=== PATIENT | female | born 1985 | race Caucasian/White ===

== ENCOUNTER 2017-02-12 12:13 | Emergency (ER) | payer OTHER ==
[~2017-02-12] VITALS: Ht 167.6 cm; Wt 86.2 kg
[~2017-02-12 12:13] MED LIST: BACTRIM DS 8001 TA1 PO; BENADRYL50 MG PO; CHANTIX1 M1 PO; CYCLOBENZAPRINE10 MG PO; FLONASE0.05 MG/AC NS; IRON325 M1 PO; LIDEX0.05% T; LOMOTIL 0.025 M1 TA1 PO; MEDROL DOSEPAK4 MG PO; MOTRIN800 MG; MOTRIN800 MG PO; Orphenadrine C100 MG PO; PERCOCET 325 MG1 TA5; PERCOCET 325 MG1 TA6 PO; PREDNICOT20 MG PO; PREDNISONE10 MG PO; PREDNISONE20 M1 PO; PRENATAL1 TA2 PO; STOOL SOFTENER1 TAB; ULTRAM50 MG PO; VISTARIL25 M2 PO; ZITHROMAX Z PA250 MG PO; ZOFRAN ODT4 MG SL; ZYRTEC10 MG PO
[2017-02-12] MEDS ORDERED: NAPROSYN500 MG PO (12:26)
[2017-02-12] MEDS ORDERED: 'PARAFON FORTE500 M1 PO (12:26)
== END 2017-02-12 13:32 | disposition home or self-care (01) ==
LOC: ED 12:13
DX: M54.5 Low back pain (principal); R03.0 Elevated blood-pressure reading, without diagnosis of hypertension; F17.200 Nicotine dependence, unspecified, uncomplicated; Z88.0 Allergy status to penicillin; Z79.899 Other long term (current) drug therapy

== ENCOUNTER → 2018-07-11 | Outpatient (CLI) | payer OTHER ==
[~2018-07-11] MED LIST changes: +'PARAFON FORTE500 M1 PO; +NAPROSYN500 MG PO
== END | disposition home or self-care (01) ==
LOC: US 09:22
DX: E04.1 Nontoxic single thyroid nodule (principal)

== ENCOUNTER → 2018-08-23 | Day surgery (SDC) | payer OTHER | END | disposition home or self-care (01) | LOC: SDC 00:51 | PROVIDERS: Internal Medicine Endocrinology, Diabetes & Metabolism | DX: E04.1 Nontoxic single thyroid nodule (principal); F17.210 Nicotine dependence, cigarettes, uncomplicated; Z98.890 Other specified postprocedural states; Z88.0 Allergy status to penicillin; Z79.899 Other long term (current) drug therapy; Z82.49 Family history of ischemic heart disease and other diseases of the circulatory system ==

== ENCOUNTER → 2018-09-15 | Outpatient (CLI) | payer OTHER | END | disposition home or self-care (01) | LOC: US 09:59 | DX: C73 Malignant neoplasm of thyroid gland (principal) ==

== ENCOUNTER → 2018-10-13 | Outpatient (CLI) | payer OTHER ==
[2018-10-13 09:19] LABS: BASO % 0.4 % (0.0-1.0); EOS # 0.2 10*3/uL (0.0-0.4); EOS % 1.8 % (1.0-4.0); HEMATOCRIT 40.2 % (37.0-47.0); LYMPH % 19.9 % (27.0-41.0); MEAN CELL VOLUME 88.5 fl (81.0-99.0); MEAN CORPUSCULAR HGB 28.6 pg (27.0-31.0); MEAN CORPUSCULAR HGB CONC 32.3 g/dl (33.0-37.0); MEAN PLATELET VOLUME 11.7 fl (9.6-12.3); MONO # 0.9 10*3/uL (0.1-1.0); MONO % 8.8 % (3.0-9.0); NEUT # 6.9 10*3/uL (2.3-7.9); NEUT % 68.8 % (47.0-73.0); PLATELET COUNT AUTOMATED 187 10*3/uL (130-400); RED BLOOD COUNT 4.54 10*6/uL (4.10-5.10); RED CELL DISTRI WIDTH 13.8 % (0-14.5); WHITE BLOOD COUNT 10.1 10*3/uL (4.8-10.8)
[2018-10-13 09:36] LABS: POTASSIUM 4.2 mmol/L (3.5-5.1)
== END | disposition home or self-care (01) ==
LOC: LAB 08:37
PROVIDERS: Otolaryngology
DX: E04.1 Nontoxic single thyroid nodule (principal)

== ENCOUNTER → 2018-12-25 | Outpatient (CLI) | payer OTHER ==
[2018-12-25 09:48] LABS: ALBUMIN 4.3 gm/dl (3.1-4.5); ALKALINE PHOSPHATASE 74 U/L (45-117); BUN 11 mg/dl (7-24); CHLORIDE 105 mmol/L (98-107); CREATININE 0.92 mg/dL (0.55-1.02); POTASSIUM 4.6 mmol/L (3.5-5.1); SGOT/AST 14 IU/L (3-35); SGPT/ALT 22 U/L (12-78); SODIUM 139 mmol/L (136-145); TOTAL PROTEIN 7.9 gm/dL (6.4-8.2)
[2018-12-25 09:49] LABS: FREE T4 0.46 ng/dl (0.76-1.46)
[2018-12-25 09:56] LABS: BETA-HCG, QUANT < 1.0 mIU/mL (1-3)
== END | disposition home or self-care (01) ==
LOC: LAB 09:15
PROVIDERS: Internal Medicine Endocrinology, Diabetes & Metabolism
DX: E66.9 Obesity, unspecified (principal); C73 Malignant neoplasm of thyroid gland

== ENCOUNTER 2019-03-14 12:58 | Emergency (ER) | payer OTHER ==
[~2019-03-14] VITALS: Ht 167.6 cm; Wt 90.3 kg
== END 2019-03-14 15:35 | disposition home or self-care (01) ==
LOC: ED 12:58
DX: S62.633A Displaced fracture of distal phalanx of left middle finger, initial encounter for closed fracture (principal); S62.635A Displaced fracture of distal phalanx of left ring finger, initial encounter for closed fracture; S60.031A Contusion of right middle finger without damage to nail, initial encounter; Z88.0 Allergy status to penicillin; Z79.899 Other long term (current) drug therapy; W22.8XXA Striking against or struck by other objects, initial encounter; Y93.89 Activity, other specified; Y92.69 Other specified industrial and construction area as the place of occurrence of the external cause; Y99.8 Other external cause status

== ENCOUNTER → 2019-03-15 | Outpatient (CLI) | payer OTHER | LOC: US 14:00 | DX: C73 Malignant neoplasm of thyroid gland (principal); E89.0 Postprocedural hypothyroidism ==

== ENCOUNTER 2019-04-12 12:32 | Inpatient (IN) | payer OTHER ==
[~2019-04-12] VITALS: Ht 167.6 cm; Wt 88.1 kg
[2019-04-12 12:33] VITALS: BP 126/74
[2019-04-12 12:55] LABS: BASO % 0.3 % (0.0-1.0); EOS # 0.1 10*3/uL (0.0-0.4); EOS % 0.8 % (1.0-4.0); HEMATOCRIT 41.6 % (37.0-47.0); HEMOGLOBIN 13.6 g/dl (12.0-16.0); LYMPH # 1.8 10*3/uL (1.3-4.4); LYMPH % 14.6 % (27.0-41.0); MEAN CELL VOLUME 88.9 fl (81.0-99.0); MEAN CORPUSCULAR HGB 29.1 pg (27.0-31.0); MEAN CORPUSCULAR HGB CONC 32.7 g/dl (33.0-37.0); MEAN PLATELET VOLUME 11.7 fl (9.6-12.3); MONO # 0.7 10*3/uL (0.1-1.0); MONO % 6.2 % (3.0-9.0); NEUT # 9.4 10*3/uL (2.3-7.9); NEUT % 77.8 % (47.0-73.0); PLATELET COUNT AUTOMATED 202 10*3/uL (130-400); RED BLOOD COUNT 4.68 10*6/uL (4.10-5.10); RED CELL DISTRI WIDTH 13.2 % (0-14.5)
[2019-04-12 13:07] LABS: ACT PARTIAL THROMBO TIME 29.1 SECONDS (20.0-32.1); INTERNATIONAL NORM RATIO 0.9 (2.0-3.5)
[2019-04-12 13:12] LABS: FREE T4 1.33 ng/dl (0.76-1.46); LIPASE 67 U/L (73-393)
[2019-04-12 13:13] LABS: ALKALINE PHOSPHATASE 86 U/L (45-117); BUN 9 mg/dl (7-24); CHLORIDE 108 mmol/L (98-107); CREATININE 0.93 mg/dL (0.55-1.02); POTASSIUM 3.8 mmol/L (3.5-5.1); SGOT/AST 10 IU/L (3-35); SGPT/ALT 20 U/L (12-78); SODIUM 138 mmol/L (136-145); TOTAL PROTEIN 7.8 gm/dL (6.4-8.2)
[2019-04-12 13:15] LABS: BETA-HCG, QUANT < 1.0 mIU/mL (1-3); TROPONIN I < 0.015 ng/ml (<0.045)
[2019-04-12 13:17] LABS: THYROID STIM HORMONE (HS) 3.65 uIU/ml (0.358-4.75)
[2019-04-12 15:15] VITALS: BP 112/75
--- NOTE | 2019-04-12 15:37 | NUR ---
PATIENT IN ROOM AT THIS TIME IN NO DISTRESS. ADVISED CT RESULTS WERE COMPLETE.
--- NOTE | 2019-04-12 16:24 | NUR ---
PATIENT IN ROOM IN NO DISTRESS. AWAITING DISPOSITION.
--- NOTE | 2019-04-12 17:40 | NUR ---
CCA 34, admitted to , under the services of DANELLE Holm DO with a diagnosis of NEAR SYNCOPE, CHEST PAIN R/O PR. Chief complaint is BILATERAL HANDS TINGLING, LIGHTHEADED, CHEST DISCOMFORT. Patient arrived via ambulatory from ER. Monitor applied. Initial assessment completed. Vital signs taken and recorded. DANELLE HOLM DO notified of admission to the unit. Orders received. See assessment for past medical history, medications and allergies. Patient and/or family oriented to unit. [address] visitation policy reviewed. Clothing/patient valuable form completed. JASON GARCIA
[2019-04-12] MEDS ORDERED: VITAMIN D5000 UNI1 PO (17:42)
[2019-04-12] MEDS ORDERED: LEVOTHYROXINE200 MC2 PO (17:42)
--- NOTE | 2019-04-12 17:49 | NUR ---
MED REC UPDATED PER POLICY.
--- NOTE | 2019-04-12 18:07 | NUR ---
CONSULT CALLED TO DR [facility]SW[facility]
[2019-04-12 18:08] VITALS: BP 120/52
--- NOTE | 2019-04-12 19:00 | NUR ---
ASSUMED CARE FOR THIS PT AT THIS TIME. PT RESTING QUIETLY IN BED. NO S/S OF DISTRESS NOTED. CALL LIGHT IN REACH.
[2019-04-12 20:00] VITALS: BP 111/68
[2019-04-13] VITALS: BP 102/53
--- NOTE | 2019-04-13 04:43 | NUR ---
24 HR chart check completed.
[2019-04-13 06:00] LABS: BASO % 0.4 % (0.0-1.0); EOS # 0.2 10*3/uL (0.0-0.4); EOS % 2.2 % (1.0-4.0); HEMATOCRIT 39.2 % (37.0-47.0); HEMOGLOBIN 12.9 g/dl (12.0-16.0); LYMPH # 2.4 10*3/uL (1.3-4.4); LYMPH % 30.9 % (27.0-41.0); MEAN CELL VOLUME 87.9 fl (81.0-99.0); MEAN CORPUSCULAR HGB 28.9 pg (27.0-31.0); MEAN CORPUSCULAR HGB CONC 32.9 g/dl (33.0-37.0); MEAN PLATELET VOLUME 12.2 fl (9.6-12.3); MONO # 0.8 10*3/uL (0.1-1.0); MONO % 10.1 % (3.0-9.0); NEUT # 4.3 10*3/uL (2.3-7.9); NEUT % 56.1 % (47.0-73.0); PLATELET COUNT AUTOMATED 215 10*3/uL (130-400); RED BLOOD COUNT 4.46 10*6/uL (4.10-5.10); RED CELL DISTRI WIDTH 13.2 % (0-14.5); WHITE BLOOD COUNT 7.6 10*3/uL (4.8-10.8)
[2019-04-13 06:14] LABS: ALBUMIN 3.6 gm/dl (3.1-4.5); BUN 15 mg/dl (7-24); CHLORIDE 108 mmol/L (98-107); CHOLESTEROL 134 mg/dL (<200); CREATININE 0.95 mg/dL (0.55-1.02); PHOSPHOROUS 4.5 mg/dL (2.5-4.9); POTASSIUM 4.4 mmol/L (3.5-5.1); SGOT/AST 10 IU/L (3-35); SGPT/ALT 19 U/L (12-78); SODIUM 141 mmol/L (136-145); TRIGLYCERIDES 51 mg/dl (<150); VLDL CHOLESTEROL 10 mg/dL (6-40)
[2019-04-13 06:20] LABS: ALKALINE PHOSPHATASE 79 U/L (45-117); FREE T4 1.14 ng/dl (0.76-1.46); HDL CHOLESTEROL 37 mg/dl (40-60); LDL CHOLESTEROL 87 mg/dL (9-159); TOTAL PROTEIN 7.1 gm/dL (6.4-8.2)
[2019-04-13 06:38] LABS: INTERNATIONAL NORM RATIO 0.9 (2.0-3.5)
[2019-04-13 07:10] LABS: VITAMIN D, 25-HYDROXY 29.5 ng/mL (30-100)
[2019-04-13 08:00] VITALS: BP 116/46
--- NOTE | 2019-04-13 10:10 | NUR ---
REFUSED LOVENOX. EXPLAINED RISKS VS. BENEFITS. STILL REFUSED.
[2019-04-13 12:00] VITALS: BP 108/64
--- NOTE | 2019-04-13 14:11 | NUR ---
Discharge instructions reviewed with patient/family. Patient receptive and verbalizes understanding. Follow-up care arranged. Written instructions given to patient/family. ALEXANDER BOATENG
== END 2019-04-13 14:11 | disposition home or self-care (01) | DRG 282 ==
LOC: ED 12:32 → 4E 17:00 → EDHOLD 17:00 → 4E 17:01
PROVIDERS: Emergency Medicine; Student in an Organized Health Care Education/Training Program; ADMIT Internal Medicine
DX: I21.9 Acute myocardial infarction, unspecified (principal); R55 Syncope and collapse; E66.09 Other obesity due to excess calories; D72.825 Bandemia; E89.0 Postprocedural hypothyroidism; E87.8 Other disorders of electrolyte and fluid balance, not elsewhere classified; F41.9 Anxiety disorder, unspecified; K29.70 Gastritis, unspecified, without bleeding; G56.00 Carpal tunnel syndrome, unspecified upper limb; R73.9 Hyperglycemia, unspecified; E83.41 Hypermagnesemia; R03.0 Elevated blood-pressure reading, without diagnosis of hypertension; F17.210 Nicotine dependence, cigarettes, uncomplicated; Z71.6 Tobacco abuse counseling; Z85.850 Personal history of malignant neoplasm of thyroid; Z88.0 Allergy status to penicillin; Z68.32 Body mass index [BMI] 32.0-32.9, adult; Z82.49 Family history of ischemic heart disease and other diseases of the circulatory system; Z83.3 Family history of diabetes mellitus; Z80.8 Family history of malignant neoplasm of other organs or systems; Z79.899 Other long term (current) drug therapy

== ENCOUNTER 2019-09-06 17:39 | Emergency (ER) | payer OTHER ==
[~2019-09-06] VITALS: Ht 167.6 cm; Wt 90.3 kg
[~2019-09-06 17:39] MED LIST changes: +LEVOTHYROXINE200 MC2 PO; +VITAMIN D5000 UNI1 PO
== END 2019-09-06 20:05 | disposition home or self-care (01) ==
LOC: ED 17:39
DX: S60.012A Contusion of left thumb without damage to nail, initial encounter (principal); F17.200 Nicotine dependence, unspecified, uncomplicated; Z88.0 Allergy status to penicillin; Z88.8 Allergy status to other drugs, medicaments and biological substances; W31.89XA Contact with other specified machinery, initial encounter; Y93.89 Activity, other specified; Y92.89 Other specified places as the place of occurrence of the external cause; Y99.8 Other external cause status

== ENCOUNTER 2020-01-03 16:09 | Emergency (ER) | payer OTHER ==
[~2020-01-03] VITALS: Ht 170.1 cm; Wt 90.7 kg
[2020-01-03] MEDS ORDERED: PROCTOFOAM-HC 110 G1 R (16:41)
[2020-01-03] MEDS ORDERED: NAPROSYN500 MG PO (16:44)
== END 2020-01-03 17:15 | disposition home or self-care (01) ==
LOC: ED 16:09
DX: K64.9 Unspecified hemorrhoids (principal); F17.200 Nicotine dependence, unspecified, uncomplicated; Z88.0 Allergy status to penicillin; Z79.899 Other long term (current) drug therapy

== ENCOUNTER → 2020-03-10 | Outpatient (CLI) | payer OTHER ==
[~2020-03-10] MED LIST changes: +PROCTOFOAM-HC 110 G1 R
== END | disposition home or self-care (01) ==
LOC: US 08:30
PROVIDERS: ATTEND Internal Medicine Endocrinology, Diabetes & Metabolism
DX: E89.0 Postprocedural hypothyroidism (principal); E07.89 Other specified disorders of thyroid; Z85.850 Personal history of malignant neoplasm of thyroid

== ENCOUNTER → 2020-03-19 | Outpatient (CLI) | payer OTHER | END | disposition home or self-care (01) | LOC: CT 08:00 | PROVIDERS: ATTEND Internal Medicine Endocrinology, Diabetes & Metabolism | DX: R59.0 Localized enlarged lymph nodes (principal); C73 Malignant neoplasm of thyroid gland ==

== ENCOUNTER → 2020-07-15 | Outpatient (CLI) | payer BC | END | disposition home or self-care (01) | LOC: CT 00:25 | PROVIDERS: ATTEND Internal Medicine Endocrinology, Diabetes & Metabolism | DX: C73 Malignant neoplasm of thyroid gland (principal); E89.0 Postprocedural hypothyroidism ==

== ENCOUNTER → 2020-09-29 | Outpatient (CLI) | payer BC ==
[2020-09-29 16:05] LABS: FREE T4 0.94 ng/dl (0.76-1.46)
[2020-09-29 16:10] LABS: THYROID STIM HORMONE (HS) 1.06 uIU/ml (0.358-4.75)
== END | disposition home or self-care (01) ==
LOC: LAB 15:05
PROVIDERS: ATTEND Internal Medicine Endocrinology, Diabetes & Metabolism
DX: C73 Malignant neoplasm of thyroid gland (principal); E55.9 Vitamin D deficiency, unspecified

== ENCOUNTER 2020-11-08 08:03 | Emergency (ER) | payer BC ==
[~2020-11-08] VITALS: Ht 167.6 cm; Wt 99.8 kg
[2020-11-08] MEDS ORDERED: CYCLOBENZAPRINE10 MG PO (08:51)
[2020-11-08] MEDS ORDERED: TYLENOL325 M1 PO (08:51)
[2020-11-08] MEDS ORDERED: NAPROSYN500 MG PO (08:51)
== END 2020-11-08 09:00 | disposition home or self-care (01) ==
LOC: ED 08:03
DX: M54.42 Lumbago with sciatica, left side (principal); E66.9 Obesity, unspecified; F17.200 Nicotine dependence, unspecified, uncomplicated; Z88.0 Allergy status to penicillin; Z85.850 Personal history of malignant neoplasm of thyroid; Z79.899 Other long term (current) drug therapy

== ENCOUNTER → 2020-11-11 | Outpatient (CLI) | payer BC ==
[~2020-11-11] MED LIST changes: +TYLENOL325 M1 PO
== END | disposition home or self-care (01) ==
LOC: RAD 10:41
PROVIDERS: ATTEND Nurse Practitioner Family
DX: M54.32 Sciatica, left side (principal)

== ENCOUNTER → 2020-11-25 | Outpatient (CLI) | payer BC ==
[2020-11-25 17:14] LABS: ALBUMIN 4.1 gm/dl (3.1-4.5); FREE T4 1.56 ng/dl (0.76-1.46)
[2020-11-25 17:19] LABS: THYROID STIM HORMONE (HS) 0.094 uIU/ml (0.358-4.75)
== END | disposition home or self-care (01) ==
LOC: US 16:00 → LAB 16:02
PROVIDERS: Internal Medicine Endocrinology, Diabetes & Metabolism; ATTEND Nurse Practitioner Family
DX: C73 Malignant neoplasm of thyroid gland (principal); E55.9 Vitamin D deficiency, unspecified; E89.0 Postprocedural hypothyroidism; R73.02 Impaired glucose tolerance (oral); M79.662 Pain in left lower leg

== ENCOUNTER → 2021-01-12 | Outpatient (CLI) | payer BC ==
[2021-01-12 17:11] LABS: FREE T4 1.55 ng/dl (0.76-1.46)
[2021-01-12 17:16] LABS: THYROID STIM HORMONE (HS) 0.012 uIU/ml (0.358-4.75)
== END | disposition home or self-care (01) ==
LOC: LAB 16:29
PROVIDERS: ATTEND Internal Medicine Endocrinology, Diabetes & Metabolism
DX: E89.0 Postprocedural hypothyroidism (principal)

== ENCOUNTER → 2021-02-03 | Outpatient (CLI) | payer BC | END | disposition home or self-care (01) | LOC: US 16:00 | PROVIDERS: ATTEND Internal Medicine Endocrinology, Diabetes & Metabolism | DX: C73 Malignant neoplasm of thyroid gland (principal); E07.9 Disorder of thyroid, unspecified ==

== ENCOUNTER → 2021-02-16 | Outpatient (CLI) | payer BC ==
[2021-02-16 15:46] LABS: ALBUMIN 3.7 gm/dl (3.1-4.5); BUN 9 mg/dl (7-24); CHLORIDE 107 mmol/L (98-107); CREATININE 0.78 mg/dL (0.55-1.02); SODIUM 140 mmol/L (136-145)
[2021-02-16 15:57] LABS: FREE T4 1.05 ng/dl (0.76-1.46); THYROID STIM HORMONE (HS) 0.567 uIU/ml (0.358-4.75)
== END | disposition home or self-care (01) ==
LOC: LAB 15:13
PROVIDERS: ATTEND Internal Medicine Endocrinology, Diabetes & Metabolism
DX: E89.0 Postprocedural hypothyroidism (principal); E55.9 Vitamin D deficiency, unspecified

== ENCOUNTER → 2021-08-09 | Outpatient (CLI) | payer BC ==
[2021-08-09 10:23] LABS: ALKALINE PHOSPHATASE 86 U/L (45-117); BUN 10 mg/dl (7-24); CHLORIDE 107 mmol/L (98-107); CHOLESTEROL 136 mg/dL (<200); CREATININE 0.79 mg/dL (0.55-1.02); LDL CHOLESTEROL 75 mg/dL (9-159); POTASSIUM 4.3 mmol/L (3.5-5.1); SGOT/AST 18 IU/L (3-35); SGPT/ALT 29 U/L (12-78); SODIUM 140 mmol/L (136-145); TOTAL PROTEIN 7.7 gm/dL (6.4-8.2); TRIGLYCERIDES 114 mg/dl (<150)
[2021-08-09 10:25] LABS: FREE T4 1.27 ng/dl (0.76-1.46)
[2021-08-09 10:30] LABS: THYROID STIM HORMONE (HS) 0.272 uIU/ml (0.358-4.75)
[2021-08-10 11:07] LABS: THYROID PEROXIDASE (TPO) AB 8 IU/mL (0-34)
[2021-08-10 22:06] LABS: THYROGLOBULIN ANTIBODY <1.0 IU/mL (0.0-0.9)
== END | disposition home or self-care (01) ==
LOC: LAB 09:45
PROVIDERS: ATTEND Internal Medicine
DX: C73 Malignant neoplasm of thyroid gland (principal); E03.9 Hypothyroidism, unspecified; E55.9 Vitamin D deficiency, unspecified; E66.9 Obesity, unspecified

== ENCOUNTER 2021-09-28 19:20 | Emergency (ER) | payer BC ==
[~2021-09-28] VITALS: Ht 167.6 cm; Wt 95.3 kg
== END 2021-09-28 20:27 | disposition left against medical advice (07) ==
LOC: ED 19:20
DX: Z53.21 Procedure and treatment not carried out due to patient leaving prior to being seen by health care provider (principal)

== ENCOUNTER → 2022-01-04 | Outpatient (CLI) | payer BC ==
[2022-01-04 12:17] LABS: BUN 10 mg/dl (7-24); CHLORIDE 108 mmol/L (98-107); CREATININE 0.84 mg/dL (0.55-1.02); POTASSIUM 4.1 mmol/L (3.5-5.1); SODIUM 142 mmol/L (136-145)
[2022-01-04 12:25] LABS: FREE T4 1.64 ng/dl (0.76-1.46)
[2022-01-05 04:06] LABS: THYROID PEROXIDASE (TPO) AB 10 IU/mL (0-34)
[2022-01-05 22:06] LABS: THYROGLOBULIN ANTIBODY <1.0 IU/mL (0.0-0.9)
== END | disposition home or self-care (01) ==
LOC: LAB 11:29
PROVIDERS: ATTEND Internal Medicine
DX: C73 Malignant neoplasm of thyroid gland (principal); E66.9 Obesity, unspecified; E03.9 Hypothyroidism, unspecified; E55.9 Vitamin D deficiency, unspecified

== ENCOUNTER 2022-06-06 13:36 | Emergency (ER) | payer OTHER ==
[2022-06-06] MEDS ORDERED: NAPROSYN500 MG PO (15:18)
[2022-06-06] MEDS ORDERED: ZANAFLEX4 MG PO (15:18)
== END 2022-06-06 15:32 | disposition home or self-care (01) ==
LOC: ED 13:36
DX: S43.402A Unspecified sprain of left shoulder joint, initial encounter (principal); S16.1XXA Strain of muscle, fascia and tendon at neck level, initial encounter; Z88.0 Allergy status to penicillin; Z90.89 Acquired absence of other organs; F17.200 Nicotine dependence, unspecified, uncomplicated; V49.40XA Driver injured in collision with unspecified motor vehicles in traffic accident, initial encounter; Y93.89 Activity, other specified; Y92.410 Unspecified street and highway as the place of occurrence of the external cause; Y99.8 Other external cause status

== ENCOUNTER → 2022-06-08 | Outpatient (CLI) | payer BC ==
[~2022-06-08] MED LIST changes: +ZANAFLEX4 MG PO
[2022-06-08 09:58] LABS: FREE T4 1.6 ng/dl (0.89-1.76); THYROID STIM HORMONE (HS) 0.36 uIU/ml (0.550-4.780)
[2022-06-09 03:06] LABS: THYROID PEROXIDASE (TPO) AB 11 IU/mL (0-34)
[2022-06-09 15:07] LABS: THYROGLOBULIN ANTIBODY <1.0 IU/mL (0.0-0.9)
== END | disposition home or self-care (01) ==
LOC: LAB 08:17
PROVIDERS: ATTEND Internal Medicine
DX: C73 Malignant neoplasm of thyroid gland (principal); E55.9 Vitamin D deficiency, unspecified; E03.9 Hypothyroidism, unspecified

== ENCOUNTER → 2022-09-07 | Outpatient (CLI) | payer BC ==
[2022-09-07 08:48] LABS: FREE T4 1.11 ng/dl (0.89-1.76); THYROID STIM HORMONE (HS) 2.86 uIU/ml (0.550-4.780)
[2022-09-08 04:06] LABS: THYROID PEROXIDASE (TPO) AB 12 IU/mL (0-34)
== END | disposition home or self-care (01) ==
LOC: LAB 07:14
PROVIDERS: ATTEND Internal Medicine
DX: C73 Malignant neoplasm of thyroid gland (principal); E55.9 Vitamin D deficiency, unspecified; E03.9 Hypothyroidism, unspecified

== ENCOUNTER → 2023-03-19 | Outpatient (CLI) | payer BC ==
[2023-03-19 08:13] LABS: HEMATOCRIT 39.1 % (37.0-47.0); MEAN CELL VOLUME 84.3 fl (81.0-99.0); MEAN CORPUSCULAR HGB 28.2 pg (27.0-31.0); MEAN CORPUSCULAR HGB CONC 33.5 g/dl (33.0-37.0); MEAN PLATELET VOLUME 11.4 fl (9.6-12.3); RED BLOOD COUNT 4.64 10*6/uL (4.10-5.10); RED CELL DISTRI WIDTH 14.6 % (0-14.5); WHITE BLOOD COUNT 7.2 10*3/uL (4.8-10.8)
[2023-03-19 08:40] LABS: ALKALINE PHOSPHATASE 78 U/L (46-116); BUN 8 mg/dl (9-23); CHLORIDE 112 mmol/L (98-107); FREE T4 1.01 ng/dl (0.89-1.76); SGPT/ALT 15 U/L (5-49); TOTAL PROTEIN 7.5 gm/dL (6.0-8.0)
== END | disposition home or self-care (01) ==
LOC: LAB 07:47
PROVIDERS: ATTEND Family Medicine
DX: E03.9 Hypothyroidism, unspecified (principal); D64.9 Anemia, unspecified; E74.9 Disorder of carbohydrate metabolism, unspecified

== ENCOUNTER → 2023-04-16 | Outpatient (CLI) | payer BC ==
[2023-04-16 08:54] LABS: FREE T4 1.44 ng/dl (0.89-1.76)
== END | disposition home or self-care (01) ==
LOC: LAB 08:16
PROVIDERS: ATTEND Family Medicine
DX: E03.9 Hypothyroidism, unspecified (principal)

== ENCOUNTER 2023-06-11 12:36 | Emergency (ER) | payer BC ==
[~2023-06-11] VITALS: Ht 167.6 cm; Wt 83.9 kg
[2023-06-11] MEDS ORDERED: WELLBUTRIN SR150 MG PO (12:46)
[2023-06-11] MEDS ORDERED: TOPAMAX100 M1 PO (12:47)
[2023-06-11] MEDS ORDERED: SODIUM CHLORIDE 0.9% 1,000 ML IV ONE (12:55)
[2023-06-11] MEDS ORDERED: IOHEXOL 300 MG/ML 100 ML VIAL IV ONE (13:00)
[2023-06-11 13:09] LABS: BASO # 0.1 10*3/uL (0.0-0.1); BASO % 0.7 % (0.0-1.0); EOS # 0.3 10*3/uL (0.0-0.4); EOS % 3.1 % (1.0-4.0); HEMATOCRIT 40.6 % (37.0-47.0); LYMPH # 1.9 10*3/uL (1.3-4.4); LYMPH % 21.2 % (27.0-41.0); MEAN CELL VOLUME 86.4 fl (81.0-99.0); MEAN CORPUSCULAR HGB 27.4 pg (27.0-31.0); MEAN CORPUSCULAR HGB CONC 31.8 g/dl (33.0-37.0); MONO # 0.6 10*3/uL (0.1-1.0); NEUT # 6.2 10*3/uL (2.3-7.9); NEUT % 67.9 % (47.0-73.0); PLATELET COUNT AUTOMATED 226 10*3/uL (130-400); RED CELL DISTRI WIDTH 13.3 % (0-14.5); WHITE BLOOD COUNT 9.1 10*3/uL (4.8-10.8)
[2023-06-11 13:31] LABS: ALKALINE PHOSPHATASE 77 U/L (46-116); BUN 10 mg/dl (9-23); CHLORIDE 110 mmol/L (98-107); LIPASE 26 U/L (12-53); POTASSIUM 3.4 mmol/L (3.4-5.1); SGPT/ALT 11 U/L (5-49); TOTAL PROTEIN 7.9 gm/dL (6.0-8.0)
[2023-06-11] MEDS ORDERED: ACETAMINOPHEN 325 MG TAB PO ONE (13:35)
[2023-06-11 14:20] LABS: BILIRUBIN Negative (Negative); BLOOD Negative (Negative); CLARITY Clear (Clear); COLOR Yellow (Yellow); GLUCOSE Negative (Negative); KETONE Trace (Negative); LEUKO ESTERASE Negative (Negative); NITRITE Negative (Negative); SPECIFIC GRAVITY >= 1.030 (1.001-1.030)
[2023-06-11] MEDS ORDERED: Ondansetron Hydrochloride 4 MG/2 ML VIAL IV ONE (14:20)
[2023-06-11 14:36] LABS: BACTERIA 1+; RBC 0-2 rbc/hpf (0-2); WBC 16-20 wbc/hpf (0-5)
[2023-06-11] MEDS ORDERED: MELOXICAM15 MG PO (14:51)
== END 2023-06-11 15:09 | disposition home or self-care (01) ==
LOC: ED 12:36
PROVIDERS: Internal Medicine
DX: N20.0 Calculus of kidney (principal); Z88.0 Allergy status to penicillin; Z98.890 Other specified postprocedural states; F17.210 Nicotine dependence, cigarettes, uncomplicated

== ENCOUNTER → 2023-06-30 | Outpatient (CLI) | payer BC ==
[~2023-06-30] MED LIST changes: +MELOXICAM15 MG PO; +TOPAMAX100 M1 PO; +WELLBUTRIN SR150 MG PO
== END | disposition home or self-care (01) ==
LOC: MAMMO 08:58
PROVIDERS: ATTEND Family Medicine
DX: N60.11 Diffuse cystic mastopathy of right breast (principal); N60.12 Diffuse cystic mastopathy of left breast; R92.322 Mammographic fibroglandular density, left breast

== ENCOUNTER → 2023-12-19 | Outpatient (CLI) | payer BC ==
[2023-12-19 08:01] LABS: HEMATOCRIT 37.4 % (37.0-47.0); MEAN CELL VOLUME 85.6 fl (81.0-99.0); MEAN CORPUSCULAR HGB 29.3 pg (27.0-31.0); MEAN CORPUSCULAR HGB CONC 34.2 g/dl (33.0-37.0); MEAN PLATELET VOLUME 10.8 fl (9.6-12.3); RED BLOOD COUNT 4.37 10*6/uL (4.10-5.10); RED CELL DISTRI WIDTH 13.2 % (0-14.5); WHITE BLOOD COUNT 7.9 10*3/uL (4.8-10.8)
[2023-12-19 09:20] LABS: ALKALINE PHOSPHATASE 71 U/L (46-116); BUN 10 mg/dl (9-23); CHLORIDE 108 mmol/L (98-107); CHOLESTEROL 149 mg/dL (<200); FREE T4 1.62 ng/dl (0.89-1.76); LDL CHOLESTEROL 81 mg/dL (9-159); POTASSIUM 3.7 mmol/L (3.4-5.1); SGPT/ALT 9 U/L (5-49); TOTAL PROTEIN 7.4 gm/dL (6.0-8.0); TRIGLYCERIDES 117 mg/dl (<150)
[2023-12-19 09:21] LABS: VITAMIN D, 25-HYDROXY 32.5 ng/mL (30-100)
== END | disposition home or self-care (01) ==
LOC: LAB 07:51
PROVIDERS: ATTEND Family Medicine
DX: E78.00 Pure hypercholesterolemia, unspecified (principal); E03.9 Hypothyroidism, unspecified; E55.9 Vitamin D deficiency, unspecified

== ENCOUNTER → 2024-02-06 | Outpatient (CLI) | payer BC ==
[~2024-02-06] MED LIST changes: +IOHEXOL 300 MG/ML 100 ML VIAL IV ONE
== END | disposition home or self-care (01) ==
LOC: CT 08:00
PROVIDERS: ATTEND Family Medicine
DX: C73 Malignant neoplasm of thyroid gland (principal); R59.1 Generalized enlarged lymph nodes

== ENCOUNTER → 2024-04-09 | Outpatient (CLI) | payer BC ==
[~2024-04-09] MED LIST changes: -IOHEXOL 300 MG/ML 100 ML VIAL IV ONE
[2024-04-09 11:06] LABS: HEMATOCRIT 41.6 % (37.0-47.0); MEAN CELL VOLUME 87.2 fl (81.0-99.0); MEAN CORPUSCULAR HGB 27.9 pg (27.0-31.0); MEAN PLATELET VOLUME 11.3 fl (9.6-12.3); RED BLOOD COUNT 4.77 10*6/uL (4.10-5.10); RED CELL DISTRI WIDTH 12.9 % (0-14.5)
[2024-04-09 11:29] LABS: ALKALINE PHOSPHATASE 81 U/L (46-116); BUN 10 mg/dl (9-23); CHLORIDE 106 mmol/L (98-107); CHOLESTEROL 206 mg/dL (<200); FREE T4 0.52 ng/dl (0.89-1.76); LDL CHOLESTEROL 120 mg/dL (9-159); POTASSIUM 3.7 mmol/L (3.4-5.1); SGPT/ALT 30 U/L (5-49); TOTAL PROTEIN 7.5 gm/dL (6.0-8.0); TRIGLYCERIDES 132 mg/dl (<150)
== END | disposition home or self-care (01) ==
LOC: LAB 10:45
PROVIDERS: ATTEND Family Medicine
DX: R53.83 Other fatigue (principal); E03.9 Hypothyroidism, unspecified; E55.9 Vitamin D deficiency, unspecified; I25.10 Atherosclerotic heart disease of native coronary artery without angina pectoris

== ENCOUNTER → 2024-04-18 | Outpatient (CLI) | payer BC | END | disposition home or self-care (01) | LOC: RAD 10:31 | PROVIDERS: ATTEND Family Medicine | DX: M50.323 Other cervical disc degeneration at C6-C7 level (principal); R25.2 Cramp and spasm ==

== ENCOUNTER → 2024-08-06 | Outpatient (CLI) | payer BC ==
[2024-08-06 11:43] LABS: HEMATOCRIT 38.6 % (37.0-47.0); MEAN CELL VOLUME 86.9 fl (81.0-99.0); MEAN CORPUSCULAR HGB 28.4 pg (27.0-31.0); MEAN CORPUSCULAR HGB CONC 32.6 g/dl (33.0-37.0); MEAN PLATELET VOLUME 10.9 fl (9.6-12.3); RED BLOOD COUNT 4.44 10*6/uL (4.10-5.10); WHITE BLOOD COUNT 6.8 10*3/uL (4.8-10.8)
[2024-08-06 12:19] LABS: ALKALINE PHOSPHATASE 72 U/L (46-116); BUN 12 mg/dl (9-23); CHLORIDE 108 mmol/L (98-107); CHOLESTEROL 169 mg/dL (<200); FREE T4 1.18 ng/dl (0.89-1.76); LDL CHOLESTEROL 98 mg/dL (9-159); POTASSIUM 3.9 mmol/L (3.4-5.1); SGPT/ALT 14 U/L (5-49); TOTAL PROTEIN 7.6 gm/dL (6.0-8.0); TRIGLYCERIDES 63 mg/dl (<150)
== END | disposition home or self-care (01) ==
LOC: LAB 11:20
PROVIDERS: ATTEND Family Medicine
DX: E03.9 Hypothyroidism, unspecified (principal); E55.9 Vitamin D deficiency, unspecified; E78.00 Pure hypercholesterolemia, unspecified

== ENCOUNTER → 2024-10-02 | Outpatient (CLI) | payer BC ==
[2024-10-02 09:22] LABS: FREE T4 1.02 ng/dl (0.89-1.76)
== END | disposition home or self-care (01) ==
LOC: LAB 08:38
PROVIDERS: ATTEND Family Medicine
DX: E03.9 Hypothyroidism, unspecified (principal)

== ENCOUNTER → 2024-11-27 | Outpatient (CLI) | payer BC ==
[2024-11-27 10:25] LABS: FREE T4 1.33 ng/dl (0.89-1.76)
== END | disposition home or self-care (01) ==
LOC: LAB 09:06
PROVIDERS: ATTEND Family Medicine
DX: E03.9 Hypothyroidism, unspecified (principal)

== ENCOUNTER → 2025-04-02 | Outpatient (CLI) | payer BC | END | disposition home or self-care (01) | LOC: MAMMO 12:30 | PROVIDERS: ATTEND Family Medicine | DX: N83.292 Other ovarian cyst, left side (principal); N85.4 Malposition of uterus; R92.313 Mammographic fatty tissue density, bilateral breasts; N60.12 Diffuse cystic mastopathy of left breast; R10.31 Right lower quadrant pain ==